=== PATIENT | female | born 1955 | race Caucasian/White ===

== ENCOUNTER → 2018-11-25 | Outpatient (CLI) | payer BC | END | disposition home or self-care (01) | LOC: Rad HDHVI 10:50 | PROVIDERS: ATTEND Internal Medicine Cardiovascular Disease | DX: I50.23 Acute on chronic systolic (congestive) heart failure (principal); I42.0 Dilated cardiomyopathy | CPT/HCPCS: 93306 ==

== ENCOUNTER → 2018-12-28 | Outpatient (CLI) | payer BC ==
[~2018-12-28] MED LIST: METO-169 PO; SACU1TAB PO
[2018-12-28 09:15] VITALS: BP 102/58
[2018-12-28 09:35] VITALS: BP 105/59
--- NOTE | 2018-12-28 09:35 | NUR ---
PRE-OP FOR [facility] FOR 12/29/18 Pre-Op Discharge Summary: See e-MAR for any medications given for this visit. Pre-op orders received and carried out per MD of EKG, LABS and chest xrays. Patient given a copy of EKG with instructions to go to [facility] out patient for further follow up care.
[2018-12-28 12:05] LABS: Potassium 3.7 mmol/L (3.5-5.1)
[2018-12-28 12:06] LABS: Basophils # (auto) 0.1 uL; Basophils % (auto) 1.1 % (0.0-2.0); Eosinophils # (auto) 0.2 uL; Eosinophils % (auto) 3.5 % (0.0-7.0); Hematocrit 45.2 % (36.0-46.0); Hemoglobin 15.1 g/dL (12.2-16.2); Lymphocytes # (auto) 1.9 uL; Lymphocytes % (auto) 40.2 % (10.0-50.0); Mean Corpuscular Hemoglobin 32.1 pg (28.0-32.0); Mean Corpuscular Hgb Conc. 33.3 g/dL (32.0-36.0); Mean Corpuscular Volume 96.3 fL (80.0-100.0); Monocytes # (auto) 0.4 uL; Monocytes % (auto) 9.4 % (0.0-12.0); Neutrophils # (auto) 2.2 uL; Neutrophils % (auto) 45.8 % (37.0-80.0); Nucleated Red Blood Cells % 0.3 %; Platelet Count (auto) 263 10^3/uL (140-450); White Blood Cell 4.8 10^3/uL (4.4-10.8)
[2018-12-28 12:18] LABS: BUN/Creatinine Ratio 16.3
[2018-12-28 12:19] LABS: Calcium 9.4 mg/dL (8.5-10.1)
[2018-12-28 12:22] LABS: INR 0.93 (0.9-1.15); Partial Thromboplastin Time 26.6 sec (23.78-33.04)
[2018-12-29 22:00] VITALS: BP 82/56
== END | disposition home or self-care (01) ==
LOC: Rad HDHVI 08:56 → UNDOADMIN 12-29 18:48 → TELE-WESTW 12-29 18:48
PROVIDERS: ATTEND Internal Medicine Cardiovascular Disease
DX: Z01.818 Encounter for other preprocedural examination (principal); D64.9 Anemia, unspecified; I10 Essential (primary) hypertension; R79.1 Abnormal coagulation profile
CPT/HCPCS: 36415; 71046; 80048; 85025; 85610; 85730; 93005; G0463

== ENCOUNTER 2018-12-29 10:49 | Inpatient (IN) | payer BC ==
[~2018-12-29] VITALS: Ht 167.6 cm; Wt 66.7 kg
[2018-12-29] MEDS ORDERED: VANCOMYCIN HCL 1000 MG VL ONE (12:42)
[2018-12-29] MEDS ORDERED: fentaNYL CITRATE 100 MCG/2 ML VL ONE (12:43)
[2018-12-29] MEDS ORDERED: VANCOMYCIN 1GM/250ML 250 ML IV ONE (12:43)
[2018-12-29] MEDS ORDERED: MIDAZOLAM HCL 1MG/1ML-2 ML VIAL ONE (12:43)
[2018-12-29] MEDS ORDERED: ceFAZolin 1GM/50ML 50 ML IV ONE (12:43)
[2018-12-29] MEDS ORDERED: IODIXANOL 320MG/ML 100ML BTL IV ONE (12:54)
[2018-12-29] MEDS ORDERED: LIDOCAINE 2%HCL (LOCAL ANESTH.) INJ 20ML MDV ONE (12:54)
[2018-12-29] MEDS ORDERED: ACETAMINOPHEN 325 MG TAB PO PRN (15:00)
[2018-12-29] MEDS ORDERED: MORPHINE SULFATE 4 MG/ML SYR/VIAL IV PRN (15:00)
[2018-12-29] MEDS ORDERED: NITROGLYCERIN 0.4 MG SL TAB SL PRN (15:00)
[2018-12-29] MEDS ORDERED: ONDANSETRON HCL 4 MG/2 ML VIAL IV PRN (15:00)
[2018-12-29] MEDS ORDERED: SACU1TAB PO (15:01)
[2018-12-29] MEDS ORDERED: METO-169 PO (15:01)
[2018-12-29] MEDS: HYDROcodone-ACET 5/325MG TAB PO PRN (15:56)
--- NOTE | 2018-12-29 18:20 | NUR ---
Telemetry admit from Hospital Chief Executive Officer MAKAYLA ELIZALDE admitted to Telemetry unit after SBAR received. Patient oriented to Beth Encinas, RN primary RN, unit, room, bed, and unit policies regarding patient care and visiting hours. Patient now on continuous telemetry monitoring, tele box #HC 6 and telemetry reading on arrival to unit is SR 66. Patient placed on bedside oxygen, weighed by bedscale and encouraged to call if they need something. All questions and concerns addressed, patient verbalized understanding. Note:
--- NOTE | 2018-12-29 18:45 | NUR ---
Dressing noted to left upper chest. Ice pack in place. Sling to left arm. Call light in reach. Will continue to monitor.
[2018-12-29 19:02] VITALS: BP 91/57
--- NOTE | 2018-12-29 20:00 | NUR ---
open note assumed care of pt. upon entering room pt awake and alert. at bedside. pt reports no pain at this time. no s/s distress noted or expressed. pt dressing to left upper chest area clean dry and intact. pt has ice pack in place. pt reports having ambulated and urinated in restroom without issue. pt also reports having dinner without incident. pt updated on plan of care with no additional questions at this time. call light in reach, will round q1hr and as needed.
[2018-12-29 22:00] VITALS: BP 82/56
[2018-12-29] MEDS ORDERED: METOPROLOL SUCCINATE XL 50 MG TAB PO SCH (22:00)
[2018-12-29] MEDS: SACUBITRIL-VALSARTAN 24mg/26mg TAB PO SCH (22:00)
--- NOTE | 2018-12-29 22:19 | NUR ---
paged Dr Rosas in regards to pt bp 82/56mmhg HR71 RR18 93% oxygen on RA and temp 97.7 F. pt is asymptomatic. will hold HS scheduled BP meds and await orders per MD. call light in reach, no s/s distress noted will continue to monitor.
--- NOTE | 2018-12-29 22:35 | NUR ---
orders from dr pedersen received: will hold meds that affect BP, no additional orders received. pt remains asymptomatic, call light in reach. will continue to monitor.
[2018-12-30] MEDS: VANCOMYCIN 1GM/250ML 250 ML IV SCH ×2 (01:41→09:59)
[2018-12-30] MEDS: HYDROcodone-ACET 5/325MG TAB PO PRN (03:34)
[2018-12-30 05:00] VITALS: BP 90/65
--- NOTE | 2018-12-30 07:08 | NUR ---
OPENING SHIFT NOTE ASSUMED CARE OF PATIENT FROM SLOT OPERATIONS MANAGER RN JUANITA. PATIENT IS AWAKE AND ALERT X4. PATIENT HAS NO S/S OF DISTRESS/SOB OR PAIN. INSTRUCTED PATIENT ON POC, PATIENT VERBALIZED UNDERSTANDING. BED IS IN LOWEST POSITION WITH SIDE RAILS RAISED X2, BED WHEELS LOCKED AND CALL LIGHT WITHIN REACH. WILL CONTINUE TO MONITOR.
[2018-12-30 07:34] VITALS: BP 87/63
[2018-12-30 08:41] VITALS: BP 87/62
--- NOTE | 2018-12-30 08:50 | NUR ---
RECEIVED CALL FROM DR. NAZARIO TO DISCHARGE PATIENT HOME. WILL FOLLOW THROUGH WITH ORDERS.
[2018-12-30] MEDS: SACUBITRIL-VALSARTAN 24mg/26mg TAB PO SCH (10:00)
--- NOTE | 2018-12-30 10:00 | NUR ---
RITCHIE FROM [employer] AT BEDSIDE ASSESSING THE FUNCTION OF THE PACEMAKER.
[2018-12-30] MEDS ORDERED: PNEUMOCOCCAL VACC POLYS 25 MCG/0.5 ML VIAL IM ONE (11:45)
[2018-12-30 11:56] VITALS: BP 95/68
--- NOTE | 2018-12-30 12:54 | NUR ---
FOLLOW UP APPOINTMENT WAS MADE WITH DR. HAINES ON 01/09/19. PROVIDED APPOINTMENT INFORMATION IN PATIENT'S DISCHARGE PACKET
[2018-12-30 13:00] VITALS: BP 95/68
--- NOTE | 2018-12-30 13:50 | NUR ---
Discharge instructions given as ordered. Encourage to follow up with PMD as instructed. All questions and concerns addressed. Patient verbalized understanding. Medication reconciliation form completed and copy given to patient. needed vaccines given. IV removed with catheter intact, pressure dressing applied. Telemetry unit returned to ICU. Patient ambulated to vehicle with all personal belongings, accompanied by family member. No distress noted at time of departure.
== END 2018-12-30 13:50 | disposition home or self-care (01) | DRG 226 ==
LOC: CATH 10:49 → WEST WING 18:35 → TELE-WESTW 22:40
PROVIDERS: ADMIT Internal Medicine Cardiovascular Disease; ATTEND Internal Medicine Cardiovascular Disease
PROC: 0JH608Z Insertion of Defibrillator Generator into Chest Subcutaneous Tissue and Fascia, Open Approach (ICD-10-PCS; principal; 2018-12-29)
PROC: 02HK3KZ Insertion of Defibrillator Lead into Right Ventricle, Percutaneous Approach (ICD-10-PCS; 2018-12-29)
PROC: 02HL3KZ Insertion of Defibrillator Lead into Left Ventricle, Percutaneous Approach (ICD-10-PCS; 2018-12-29)
PROC: 02H63KZ Insertion of Defibrillator Lead into Right Atrium, Percutaneous Approach (ICD-10-PCS; 2018-12-29)
DX: I42.0 Dilated cardiomyopathy (principal); I50.23 Acute on chronic systolic (congestive) heart failure; I11.0 Hypertensive heart disease with heart failure; Z96.651 Presence of right artificial knee joint; Z82.49 Family history of ischemic heart disease and other diseases of the circulatory system; Z23 Encounter for immunization; Z98.1 Arthrodesis status
CPT/HCPCS: 71045; 93005; A6257; G0378; J0690; J2250; Q9967

== ENCOUNTER → 2019-07-14 | Outpatient (CLI) | payer BC | END | disposition home or self-care (01) | LOC: Rad HDHVI 15:54 | PROVIDERS: ATTEND Internal Medicine Cardiovascular Disease | DX: I42.0 Dilated cardiomyopathy (principal); I50.43 Acute on chronic combined systolic (congestive) and diastolic (congestive) heart failure; Z95.810 Presence of automatic (implantable) cardiac defibrillator | CPT/HCPCS: 93306 ==

== ENCOUNTER → 2020-02-12 | Outpatient (CLI) | payer BC | END | disposition home or self-care (01) | LOC: Rad HDHVI 15:58 | PROVIDERS: ATTEND Internal Medicine Cardiovascular Disease | DX: I50.43 Acute on chronic combined systolic (congestive) and diastolic (congestive) heart failure (principal); I42.0 Dilated cardiomyopathy; Z95.810 Presence of automatic (implantable) cardiac defibrillator | CPT/HCPCS: 93306 ==

== ENCOUNTER → 2021-01-23 | Outpatient (CLI) | payer BC | END | disposition home or self-care (01) | LOC: Rad HDHVI 09:05 | PROVIDERS: ATTEND Internal Medicine Cardiovascular Disease | DX: I50.43 Acute on chronic combined systolic (congestive) and diastolic (congestive) heart failure (principal); I42.0 Dilated cardiomyopathy | CPT/HCPCS: 93306 ==

== ENCOUNTER → 2021-01-28 | Outpatient (CLI) | payer BC ==
[2021-01-28 12:09] LABS: Free T4 (Free Thyroxine) 1.09 ng/dL (0.89-1.76)
[2021-01-28 12:11] LABS: Basophils # (auto) 0 10 ^3/uL (0-0.2); Basophils % (auto) 0.9 % (0.0-2.0); Eosinophils # (auto) 0.1 10 ^3/uL (0-0.8); Eosinophils % (auto) 2.8 % (0.0-7.0); Hematocrit 41.7 % (36.0-46.0); Hemoglobin 14.1 g/dL (12.2-16.2); Lymphocytes # (auto) 1.4 10 ^3/uL (0.4-5.4); Lymphocytes % (auto) 30.8 % (10.0-50.0); Mean Corpuscular Hemoglobin 31.8 pg (28.0-32.0); Mean Corpuscular Hgb Conc. 33.7 g/dL (32.0-36.0); Mean Corpuscular Volume 94.1 fL (80.0-100.0); Monocytes # (auto) 0.5 10 ^3/uL (0-1.3); Monocytes % (auto) 10.5 % (0.0-12.0); Neutrophils # (auto) 2.5 10 ^3/uL (1.6-8.6); Platelet Count (auto) 261 10^3/uL (140-450); Red Blood Cells 4.44 10^6/uL (4.0-5.20); Red Cell Distribution Width 13.3 % (11.8-14.3); White Blood Cell 4.5 10^3/uL (4.4-10.8)
[2021-01-28 12:13] LABS: Albumin 3.9 g/dL (3.4-5.0); BUN/Creatinine Ratio 16.5; Bilirubin, Total 0.5 mg/dL (0.2-1.0); Calcium 9.4 mg/dL (8.5-10.1); Total Protein 7.8 g/dL (6.4-8.2)
[2021-01-28 12:15] LABS: Urine Blood Negative /uL (Negative); Urine Specific Gravity 1.028 (1.001-1.035)
== END | disposition home or self-care (01) ==
LOC: LAB 01-24 15:43
PROVIDERS: ATTEND Internal Medicine Cardiovascular Disease
DX: D51.3 Other dietary vitamin B12 deficiency anemia (principal); I10 Essential (primary) hypertension; E11.9 Type 2 diabetes mellitus without complications; E55.9 Vitamin D deficiency, unspecified; D64.9 Anemia, unspecified; R00.2 Palpitations; R53.1 Weakness; R30.0 Dysuria
CPT/HCPCS: 36415; 80053; 80061; 81003; 82306; 82607; 83036; 84439; 84443; 85025

== ENCOUNTER → 2022-07-29 | Outpatient (CLI) | payer BC ==
[~2022-07-29] MED LIST changes: -METO-169 PO; +METO-289 PO
== END | disposition home or self-care (01) ==
LOC: Rad HDHVI 15:53
PROVIDERS: ATTEND Internal Medicine Cardiovascular Disease
DX: I08.3 Combined rheumatic disorders of mitral, aortic and tricuspid valves (principal); R00.2 Palpitations; I10 Essential (primary) hypertension
CPT/HCPCS: 93306

== ENCOUNTER → 2023-06-24 | Outpatient (CLI) | payer BC | END | disposition home or self-care (01) | LOC: Rad HDHVI 15:38 | PROVIDERS: ATTEND Internal Medicine Cardiovascular Disease | DX: I08.3 Combined rheumatic disorders of mitral, aortic and tricuspid valves (principal); R06.02 Shortness of breath; I10 Essential (primary) hypertension | CPT/HCPCS: 93306 ==

== ENCOUNTER → 2024-09-14 | Outpatient (CLI) | payer BC | END | disposition home or self-care (01) | LOC: Rad HDHVI 13:52 | PROVIDERS: ATTEND Internal Medicine Cardiovascular Disease | DX: I51.7 Cardiomegaly (principal); I50.23 Acute on chronic systolic (congestive) heart failure | CPT/HCPCS: 93306 ==